=== PATIENT | female | born 1950 | race Caucasian/White ===

== ENCOUNTER 2019-09-06 08:12 | Outpatient (CLI) | payer OTHER, SELFPAY ==
--- NOTE | ~2019-09-06 | CT_ITS ---
EXAMINATION: CT chest w con DATE: 09/06/2019 09:14 INDICATION: Follow-up pulmonary nodules. Non-small cell lung cancer. TECHNIQUE: Computed tomography (CT) of the chest was performed with 75 cc Omnipaque 350 intravenous c ontrast. The dose-length product was 235.99 mGy-cm. Automated exposure control and iterative reconstr uction technique were employed. COMPARISON: CT dated 12/09/2017 FINDINGS: Stable mediastinal lymph node measuring approximately 9 mm, likely reactive. No axillary or hilar lymphadenopathy. No evidence for aortic aneurysm or dissection. Heart size normal. No signific ant pleural or pericardial effusion. Stable 4 mm left upper lobe nodule, image 33. Multiple additiona l stable 2-3 mm nodules are present throughout both lungs. Stable subsolid 6 mm nodule right lower lo be, image 74. No new pulmonary nodules or masses. No endobronchial lesions. The upper abdomen is unre markable. Stable calcified right thyroid nodules. IMPRESSION: 1. Stable innumerable bilateral pulmonary nodules, largest measuring 4 mm in the left upper lobe and some solid 6 mm nodule right lower lobe, most likely infectious/inflammatory. Follow-up low dose CT i n 12 months recommended. Reviewed, dictated and finalized at location A. IMPRESSION: 1. Stable innumerable bilateral pulmonary nodules, largest measuring 4 mm in th e left upper lobe and some solid 6 mm nodule right lower lobe, most likely infe ctious/inflammatory. Follow-up low dose CT in 12 months recommended.
[2019-09-06 08:55] LABS: Estimated Glomerular Filt Rate 49
== END 2019-09-06 08:13 | disposition home or self-care (01) ==
LOC: ANHIMG 08:20
DX: R91.1 Solitary pulmonary nodule (principal)
CPT/HCPCS: 36415; 71260; Q9967

== ENCOUNTER → 2022-07-28 11:13 | Outpatient (CLI) | payer MEDICARE, SELFPAY ==
--- NOTE | ~2022-07-28 | MM_ITS ---
EXAMINATION: MM screening [facility] BI w makenzie HISTORY: Screening mammogram TECHNIQUE: Craniocaudal and mediolateral oblique 3-D tomosynthesis images were obtained and synthetic 2-D images were generated. CAD analysis was submitted and interpreted. COMPARISON: 06/10/2017, 11/30/2015 BREAST PARENCHYMAL COMPOSITION: There are scattered areas of fibroglandular density. FINDINGS: No suspicious mass, calcification, or architectural distortion are identified in either rex ast to suggest malignancy. There has been no suspicious interval change. IMPRESSION: 1. No mammographic evidence of malignancy. 2. Recommend routine screening mammography in one year. BI-RADS Category 1: Negative Reviewed, dictated and finalized at location A.
--- NOTE | ~2022-07-28 | DEXA_ITS ---
Bone Density Report Name: CONCEPCIÓN LE Age: 72 Sex: Female Ethnicity: White Date of : 1950 Indication: postmenopausal; screening for osteoporosis; height loss; prior fracture; asthma or emphysema; Referring Provider: KHANHTABATHA Study: Bone densitometry was performed. Exam Date: July 28, 2022 Accession number: [id number] Bone Density: Region BMD T-score Z-score Classification AP Spine (L1-L4) 1.077 0.3 2.6 Normal Femoral Neck (Left) 0.819 -0.3 1.8 Normal Total Hip (Left) 1.011 0.6 2.3 Normal Femoral Neck (Right) 0.832 -0.2 1.9 Normal Total Hip (Right) 0.985 0.4 2.1 Normal Total Hip Mean 0.998 0.5 2.2 Normal World Health Organization criteria for BMD impression classify patients as: Normal (T-score at or above -1.0), Osteopenia (T-score between -1.0 and -2.5), or Osteoporosis (T-score at or below -2.5). 10-year Fracture Risk: FRAX not reported because: All T-scores for Spine Total, Hip Total, Femoral Neck at or above -1.0 Prior hip or vertebral fracture Previous Exams: Region Exam Age BMD T-score BMD Change BMD Change Date g/cm2 vs Baseline vs Previous AP Spine(L1-L4) 07/28/2022 72 1.077 0.3 -0.036* -0.036* 04/08/2013 63 1.113 0.6 Total Hip(Left) 07/28/2022 72 1.011 0.6 -0.038* -0.038* 04/08/2013 63 1.048 0.9 Total Hip(Right) 07/28/2022 72 0.985 0.4 -0.043* -0.043* 04/08/2013 63 1.029 0.7 *Denotes significance at 95% confidence level, LSC for AP Spine = 0.022 g/cm2, LSC for Total Hip = 0.027 g/cm2 Clinical Information Provided by Patient: Have had a previous hip or vertebral fracture Has had a low trauma fracture Has used the following medications: Vitamin D Has the following medical conditions: Asthma or Emphysema, CLL - 01/2022 Patient maximum height was 69.7 Menopause Age: 45 No regular weight bearing exercise Does not regularly consume dairy products Drinks caffeinated beverages Onset of menses at age 10 Number of children 5 Impression: The patient has normal bone mass. The patient has risk factors, including: previous fracture. The BMD for the AP Spine(L1-L4) decreased, changing by -0.036 since the last DXA exam. The BMD for the Total Hip(Left) decreased, changing by -0.038 since the last DXA exam. The BMD for the Total Hip(Right) decreased, changing by -0.043 since the last DXA exam. Discussion: INCREASED RISK OF FRACTURE DUE TO HISTORY OF
== END ==
PROVIDERS: PCP Internal Medicine; Visit Provider Internal Medicine
DX: Z12.31 Encounter for screening mammogram for malignant neoplasm of breast (principal); Z78.0 Asymptomatic menopausal state; Z13.820 Encounter for screening for osteoporosis; M16.11 Unilateral primary osteoarthritis, right hip
CPT/HCPCS: 77063; 77067; 77080

== ENCOUNTER 2023-07-03 19:31 | Observation (INO) | payer MEDICARE, SELFPAY ==
[2023-07-03] VITALS (8 sets, daily range): BP systolic 127–161; BP diastolic 76–102; PULSE 98–110; RESP 15–24; TEMP 36.4; O2SAT 92–97
--- NOTE | ~2023-07-03 | XR_ITS ---
EXAMINATION: XR chest 1V portable Exam Date/Time: 07/03/2023 20:48 CDT HISTORY: shortness of breath Comparison: 09/03/2017, images only; CT chest 09/06/2019, images only. RESULT: Lines, tubes, and devices: Cardiac valve replacement. Lungs and pleura: Mild diffuse reticulonodular opacities. Cardiomediastinal silhouette: Stable. Other: No acute osseous or upper abdominal finding. IMPRESSION: Diffuse pulmonary opacities may represent respiratory bronchiolitis or mild interstitial edema. Reviewed, dictated and finalized at location K. IMPRESSION: Diffuse pulmonary opacities may represent respiratory bronchiolitis or mild int erstitial edema.
--- NOTE | 2023-07-03 19:32 | ECG_ITS ---
SEE SCANNED COPY FOR CONFIRMED REPORT MTDD
[2023-07-03 20:11] LABS: Basophils Percent Auto 0.3 % (0.2-1.2); Eosinophils Absolute Auto 0.1 K/mm3 (0-0.3); Eosinophils Percent Auto 0.9 % (0-4.4); Hematocrit 45.1 % (37.0-47.0); Hemoglobin 14.9 g/dL (12.0-15.0); Immature Granulocyte Absolute 0.04 K/mm3 (0.00-0.031); Immature Granulocyte Percent A 0.4 % (0-0.5); Lymphocytes Absolute Auto 0.89 K/mm3 (0.9-3.2); Lymphocytes Percent Auto 7.9 % (18.3-44.2); Mean Corpuscular Hemoglobin 30.8 pg (26-34); Mean Corpuscular Volume 93.2 fl (80-100); Mean Platelet Volume 9.8 fl (7.4-10.4); Monocytes Absolute Auto 1.1 K/mm3 (0.1-0.6); Monocytes Percent Auto 9.8 % (2.6-8.5); Neutrophils Percent Auto 80.7 % (45.5-73.1); Platelet Count Result 205 k/mm3 (150-375); Red Blood Count 4.84 M/mm3 (4.2-5.4); Red Cell Distribution Width 12.4 % (11.5-14.5); White Blood Count 11.2 K/mm3 (4.5-10.0)
[2023-07-03 20:20] LABS: Alanine Aminotransferase 29 U/L (6-35); Albumin Level 4.3 g/dL (3.5-5.1); Alkaline Phosphatase 79 U/L (38-126); Anion Gap 7 mmol/L (4-12); Aspartate Amino Transferase 35 U/L (14-36); Bilirubin,Total 0.7 mg/dL (0.2-1.3); Blood Urea Nitrogen 20 mg/dL (7-17); Calcium 9.7 mg/dL (8.4-10.2); Carbon Dioxide 32 mmol/L (22-30); Chloride 97 mmol/L (98-107); Estimated Glomerular Filt Rate 48; Glucose 159 mg/dL (65-110); Potassium 3.9 mmol/L (3.4-5.0); Sodium 136 mmol/L (137-145)
[2023-07-03] MEDS: IPRATROPIUM 0.5 MG/ALBUTEROL SULFATE 2.5 MG AMPUL.NEB 3 ML INHALATION ×3 (20:31→20:32)
[2023-07-03 20:39] LABS: NT Pro B Type Natriuretic Pept 777 pg/mL (19.9-100)
--- NOTE | 2023-07-03 20:50 | ED.GENADULT ---
HPI - General Adult General Chief complaint: Shortness of Breath/Dyspnea Stated complaint: Short of breath Time Seen by Provider: 07/03/23 20:07 History of Present Illness HPI narrative: Patient is a 73-year-old female who presents to the emergency department this evening complaining of shortness of breath. Patient states that she was diagnosed with an upper respiratory infection last week and told that she just needs to wait it out and was prescribed Tessalon Perles for her cough. Patient states that her shortness of breath throughout this week has worsened. Patient does have audible wheezing and states that she was diagnosed with mild COPD and admits to a history of asthma and CHF. Patient is currently on a water pill but states that she has been skipping every other day due to fear of getting dehydrated while she clears this virus. She is currently denying any chest pain, abdominal pain, nausea or vomiting. Patient does have a history of atrial fibrillation and is on Xarelto. She denies any fevers at home. She there are no other modifying, alleviating, or precipitating factors at this time. Related Data Allergies Allergy/AdvReac Type Severity Reaction Status Date / Time levofloxacin Allergy Unknown FEVER AND Verified 07/03/23 20:57 SORE MUSCLES doxycycline AdvReac Joint Pain Verified 07/03/23 20:57 rifampin AdvReac Diarrhea Verified 07/03/23 20:57 Yufyxja-FKW-OsW Reductase AdvReac Joint Pain Verified 07/03/23 20:57 Inhibitor Review of Systems Review of Systems: All systems are reviewed and are negative unless stated otherwise in the HPI. PMFSH Comments Past medical history significant for CHF, asthma/COPD atrial fibrillation on Xarelto. Exam Narrative: General: Alert, awake, afebrile, aicw-sw-cbezxcdn respiratory distress. HEENT: PERRL, no rhinorrhea, no post nasal drip, oropharynx clear. Neck: Trachea midline, no JVD, no lymphadenopathy. Cardiovascular: Tachycardic with an irregular rhythm, no murmurs, rubs or gallops, no peripheral edema. Respiratory: Diffuse bilateral wheezing, conversational dyspnea, tachypnea, no rhonchi, no rubs, in cpcy-rh-lyohmehi respiratory distress. Abdomen: Soft, nontender, nondistended, no rebound, no guarding, no peritoneal signs. Musculoskeletal: No joint swelling or deformity, normal muscle tone. Skin: No rashes or petechia, no signs of infection. Psychiatric: Alert and oriented, normal behavior and judgment for situation. Neurological: Alert and oriented to person, place, and time. Follows all commands. No focal deficits, speech is clear and fluent. Course Vital Signs Vital signs: Vital Signs Pulse Rate 98 07/03/23 20:36 Respiratory Rate 22 H 07/03/23 20:36 Pulse Rate 98 07/03/23 20:36 Respiratory Rate 22 H 07/03/23 20:36 Medical Decision Making MDM Narrative Medical decision making narrative: The patient was evaluated by myself in the emergency department. History is obtained from patient who is an independent historian and physical exam was performed. External medical records were reviewed at this time. IV was established and pertinent tests were ordered. Patient does meet SIRS criteria based on heart rate and respiratory rate at this time and she was started on IV Rocephin and azithromycin to cover her for pneumonia/COPD/asthma exacerbation. Patient was administered an hour long DuoNeb breathing treatment and 125 mg of IV Solu-Medrol. EKG was obtained which revealed atrial fibrillation at a rate of 108. No ST changes, T wave inversions or evidence of acute ischemia within the limitations of the baseline artifact. EKG was independently interpreted by me and is currently pending official cardiology read. Laboratory results obtained revealing no acute process. Imaging studies obtained included CXR which was independently interpreted by me revealing mild interstitial edema no obvious consolidation or evidence of pneumonia, chest x
[2023-07-03] MEDS: methylPREDNISolone SOD SUCC 125 MG VIAL IV PUSH (21:00)
--- NOTE | 2023-07-03 21:14 | PM.IMHP ---
H&P: HPI History of Present Illness Date/Time: 07/03/23 21:14 Chief Complaint: SOB Narrative: THIS IS A 72-YEAR-OLD FEMALE WITH PAST MEDICAL HISTORY SIGNIFICANT FOR HYPERTENSION, CONGESTIVE HEART FAILURE, ATRIAL FIBRILLATION RATE CONTROLLED ANTICOAGULATED, CHRONIC KIDNEY DISEASE, OBESITY. PATIENT PRESENTS TO THE EMERGENCY ROOM DUE TO WHEEZING, SHORTNESS OF BREATH FOR A WEEK OR SO WAS SEEN AT [facility]RGENT [facility]ARE CL[facility]IC WHERE SHE WAS TOLD SHE HAD A VIRAL ILLNESS AND WAS SENT HOME WITH SYMPTOMATIC CARE. PATIENT'S SYMPTOMS GOT WORSE SHE HAS PERSISTENT COUGH PRODUCTIVE OF YELLOW SPUTUM, FEVERS, CHILLS HAS HAD GENERALIZED MUSCLE ACHES AND PAINS GENERALIZED WEAKNESS, POOR APPETITE, POOR PER ORALLY INTAKE. PRELIMINARY WORKUP WAS SIGNIFICANT FOR CHEST X-RAY WITH LUNG OPACITIES. PATIENT TESTED NEGATIVE FOR INFLUENZA TYPE A INFLUENZA TYPE B COVID AND RSV. IN EMERGENCY ROOM PATIENT REQUIRE SEVERAL NEB TREATMENTS. PATIENT HAS BEEN PLACED IN OBSERVATION FOR FURTHER EVALUATION MANAGEMENT AND TREATMENT. EXAMINATION:? XR chest 1V portable Exam Date/Time:? 07/03/2023 20:48 CDT HISTORY: shortness of breath ? Comparison:? 09/03/2017, images only; CT chest 09/06/2019, images only. RESULT: Lines, tubes, and devices:? Cardiac valve replacement. Lungs and pleura:? Mild diffuse reticulonodular opacities. Cardiomediastinal silhouette:? Stable. Other:? No acute osseous or upper abdominal finding. ? IMPRESSION: Diffuse pulmonary opacities may represent respiratory bronchiolitis or mild interstitial edema. [facility] Family History Family History (Updated 07/03/23 @ 23:13 by Melanie Khan RN) Father Acute myocardial infarction Congestive heart failure Hypertension Other Asthma Congestive heart failure Mother Cerebrovascular accident Chronic obstructive pulmonary disease Congestive heart failure Hypertension Social History Social History Smoking status: Former smoker Alcohol intake: never Substance use: never Do You Feel Safe in your Home?: Yes Lack of Transportation: No Lack of Food: Never True Current Housing: I Have Housing Concerned About Future Housing: No Difficulty Paying Gas/Electric Bills: No Difficulty Paying for Meds: No Currently Unemployed: No Education: Bachelor's Degree Difficulty w/ Childcare or Family Care: No Spiritual care concerns: No Meds Home Medications and Allergies Home Medications Medication Instructions Recorded Confirmed Type acetaminophen 325 mg tablet 650 mg PO Q4H PRN Pain 07/03/23 07/03/23 History ascorbic acid (vitamin C) 1,000 mg 1 g PO DAILY 07/03/23 07/03/23 History tablet aspirin 81 mg tablet 81 mg PO HS 07/03/23 07/03/23 History benzonatate 100 mg capsule 100 mg PO TID PRN Cough 07/03/23 07/03/23 History cholecalciferol (vitamin D3) 4,000 units PO DAILY 07/03/23 07/03/23 History cyanocobalamin (vitamin B-12) 1,000 mcg PO EVERY OTHER DAY 07/03/23 07/03/23 History ferrous sulfate 325 mg (65 mg 325 mg PO EVERY OTHER DAY 07/03/23 07/03/23 History iron) tablet magnesium glycinate 400 mg PO DAILY 07/03/23 07/03/23 History meclizine 25 mg tablet 25 mg PO TID PRN Dizziness 07/03/23 07/03/23 History metoprolol succinate 25 mg 25 mg PO DAILY 07/03/23 07/03/23 History tablet,extended release 24 hr omega-3 fatty acids-fish oil 2 cap PO DAILY 07/03/23 07/03/23 History potassium chloride 10 mEq 10 meq PO DAILY 07/03/23 07/03/23 History tablet,extended release rivaroxaban 20 mg tablet (Xarelto) 20 mg PO DAILY 07/03/23 07/03/23 History spironolactone 25 mg tablet 25 mg PO DAILY 07/03/23 07/03/23 History torsemide 20 mg tablet 20 mg PO DAILY 07/03/23 07/03/23 History Allergies Allergy/AdvReac Type Severity Reaction Status Date / Time levofloxacin Allergy Unknown FEVER AND Verified 07/03/23 20:57 SORE MUSCLES doxycycline AdvReac Joint Pain Verified 07/03/23 20:57 rifampin AdvReac Diar
[2023-07-03 22:07] LABS: Influenza A QL RT-PCR Negative (Negative); Influenza B QL RT-PCR Negative (Negative); RSV RNA, RT-PCR Negative (Negative); SARS-CoV-2 RNA PCR Negative (Negative)
[2023-07-03] MEDS: AZITHROMYCIN 500 MG/NS 250 ML 500 MG/250 ML BAG 250 MG IVPB (22:41)
--- NOTE | 2023-07-03 23:08 | ADMGEN ---
This patient, Kristen Jones, was admitted to 2 Medical Room 242-01. Patient/family oriented to hospital policies and general routines including ID bracelet, bed and alarms, visiting hours, pain management, procedures, bathroom and other care routines, personal items, smoking policy, room service/diet, and visiting hours. Information on how to activate the Rapid Response Team has been discussed. Patient/Family are encouraged to report perceived risks to care and to ask questions if they do not understand what they are told or what they should do.
[2023-07-04] VITALS (21 sets, daily range): BP systolic 113–124; BP diastolic 51–69; PULSE 61–105; RESP 16–24; TEMP 36.2–36.5; O2SAT 93–97
[2023-07-04] MEDS: IPRATROPIUM 0.5 MG/ALBUTEROL SULFATE 2.5 MG AMPUL.NEB 3 ML INHALATION ×4 (02:30→19:58)
[2023-07-04] MEDS: BENZONATATE 100 MG CAPSULE PO ×3 (04:38→21:53)
[2023-07-04] MEDS: methylPREDNISolone SOD SUCC 125 MG VIAL 60 MG IV PUSH (06:32)
[2023-07-04] MEDS: ASCORBIC ACID 500 MG TABLET 1000 MG PO (09:11)
[2023-07-04] MEDS: FERROUS SULFATE 325 MG TABLET DR BY MOUTH (09:11)
[2023-07-04] MEDS: CHOLECALCIFEROL 1,000 UNITS TABLET 4000 UNITS PO (09:11)
[2023-07-04] MEDS: METOPROLOL SUCCINATE EXT REL 25 MG TABCR PO (09:11)
[2023-07-04] MEDS: MAGNESIUM OXIDE 400 MG TABLET PO (09:11)
[2023-07-04] MEDS: OMEGA 3 POLYUNSAT FATTY ACIDS 1 GM CAP 2 GM PO (09:11)
[2023-07-04] MEDS: SPIRONOLACTONE 25 MG TABLET PO (09:11)
--- NOTE | 2023-07-04 12:12 | PM.IMPN ---
Progress Note: A&P Assessment and Plan (1) CAP (community acquired pneumonia): Code(s): J18.9 - Pneumonia, unspecified organism Status: Acute Assessment and Plan: Presented with progressively productive cough and worsening dyspnea and leukocytosis with ABNL CXR Flu AB, COVID, RSV all negative Continue Zithromax and Rocephin (2) Asthma with COPD with exacerbation: Code(s): J44.1 - Chronic obstructive pulmonary disease with (acute) exacerbation; J45.901 - Unspecified asthma with (acute) exacerbation Status: Acute Assessment and Plan: Continue steroids and bronchodilators (3) Atrial fibrillation: Code(s): I48.91 - Unspecified atrial fibrillation Status: Acute Assessment and Plan: Continue metoprolol and Xarelto (4) Congestive heart failure: Code(s): I50.9 - Heart failure, unspecified Status: Acute Assessment and Plan: CHF may be contributing to ABNL CXR (BNP 777 at admission and she initially had orhtopnea) Continue metoprolol and torsemide (5) S/P AVR (aortic valve replacement): Code(s): Z95.2 - Presence of prosthetic heart valve Status: Acute Assessment and Plan: Clinically stable Subjective Date/time seen: 07/04/23 12:12 Interval history: Admitted 07/02 with productive cough and sob. Hx CAD, AVR (bio), AF, CHF, COPD/asthma. No fever. Chest sore but no exertional pain. BILLY with speaking. Cough severe. Loose stool. Mild fecal incontinence with coughing. No dysuria. No noted bleeding. Has annual echo. No hx CHF. Review of Systems Review of Systems: All systems reviewed & are unremarkable except as noted in HPI and below Exam Narrative: HEENT: PERRL, sclerae nonicteric, pharyngeal mucosa pink and intact NECK: No JVD CHEST: Coarse BS, bilaterl LL fine crackles. Normal effort. HEART: NL S1/S2, regular, no murmur ABDOMEN: BS+, soft, nontender, no mass, no bruits EXTREMITIES: No cyanosis, edema, or clubbing NEUROLOGIC: CN intact and symmetric to inspection. MUSCULOSKELETAL: Tone and strength symmetric. PSYCH: Alert. Oriented to person, place, and time. Objective Data Vital Signs Vital Signs: Vital Signs - 24 hr 07/03/23 20:36 07/03/23 20:00 07/03/23 21:22 Temperature 97.6 F Pulse Rate 98 105 H Respiratory Rate 22 H 20 Blood Pressure 150/102 H Pulse Oximetry 96 96 Oxygen Delivery Room Air Room Air 07/03/23 19:45 07/03/23 21:40 07/03/23 21:47 Temperature Pulse Rate 100 102 H 110 H Respiratory Rate 21 H 15 Blood Pressure 161/99 H Pulse Oximetry 97 Oxygen Delivery 07/03/23 22:39 07/03/23 23:22 07/04/23 00:00 Temperature Pulse Rate 100 87 Respiratory Rate 24 H Blood Pressure 127/90 Pulse Oximetry 95 Oxygen Delivery Room Air 07/03/23 23:49 07/04/23 00:44 07/04/23 02:30 Temperature 97.6 F Pulse Rate 101 H 93 79 Respiratory Rate 22 H 20 Blood Pressure 133/76 Pulse Oximetry 92 97 Oxygen Delivery CPAP 07/04/23 02:30 07/04/23 04:00 07/04/23 06:00 Temperature 97.7 F Pulse Rate 79 82 89 Respiratory Rate 20 22 H Blood Pressure 115/53 L Pulse Oximetry 96 96 Oxygen Delivery CPAP 07/04/23 08:28 07/04/23 08:29 07/04/23 08:36 Temperature Pulse Rate 92 105 H Respiratory Rate 20 24 H Blood Pressure Pulse Oximetry 95 Oxygen Delivery Room Air 07/04/23 09:07 07/04/23 09:11 07/04/23 08:00 Temperature 97.4 F L Pulse Rate 94 98 103 H Respiratory Rate 18 Blood Pressure 124/69 Pulse Oximetry 95 Oxygen Delivery 07/04/23 09:20 Temperature Pulse Rate Respiratory Rate Blood Pressure Pulse Oximetry Oxygen Delivery Room Air Intake/Output Intake/Output: Intake & Output 07/01/23 07/02/23 07/03/23 07/04/23 23:59 23:59 23:59 23:59 Intake Total 300 790 Balance 300 790 Meds/Results Medications: Active Medications Generic Name Dose Route Start Last Admin Trade Name Freq PRN Reason
[2023-07-04] MEDS: TORSEMIDE 20 MG TABLET PO (13:49)
[2023-07-04] MEDS: AZITHROMYCIN 500 MG/NS 250 ML 500 MG/250 ML BAG 250 MG IVPB (14:29)
[2023-07-04 14:33] LABS: Anion Gap 11 mmol/L (4-12); Blood Urea Nitrogen 21 mg/dL (7-17); Calcium 10.1 mg/dL (8.4-10.2); Carbon Dioxide 27 mmol/L (22-30); Chloride 98 mmol/L (98-107); Estimated CRCL calculation 71 ml/min; Estimated Glomerular Filt Rate > 60; Glucose 178 mg/dL (65-110); Sodium 136 mmol/L (137-145)
[2023-07-04] MEDS: ACETAMINOPHEN 325 MG TABLET 650 MG PO ×2 (14:34→19:02)
[2023-07-04] MEDS: RIVAROXABAN 20 MG TABLET PO (17:48)
[2023-07-04] MEDS: DOCUSATE SODIUM 100 MG CAPSULE PO (19:00)
[2023-07-04] MEDS: ASPIRIN 81 MG ENTERIC TABLET PO (20:52)
[2023-07-05] VITALS (19 sets, daily range): BP systolic 101–148; BP diastolic 66–78; PULSE 77–110; RESP 16–20; TEMP 36.7–38.8; O2SAT 91–96
[2023-07-05] MEDS: IPRATROPIUM 0.5 MG/ALBUTEROL SULFATE 2.5 MG AMPUL.NEB 3 ML INHALATION ×4 (03:26→19:58)
[2023-07-05 05:09] LABS: Hematocrit 39.8 % (37.0-47.0); Hemoglobin 13.3 g/dL (12.0-15.0); Mean Corpuscular HGB Conc 33.4 g/dl (32-36); Mean Corpuscular Hemoglobin 31.3 pg (26-34); Mean Corpuscular Volume 93.6 fl (80-100); Mean Platelet Volume 10.2 fl (7.4-10.4); Platelet Count Result 230 k/mm3 (150-375); Red Blood Count 4.25 M/mm3 (4.2-5.4); Red Cell Distribution Width 12.3 % (11.5-14.5); White Blood Count 14.7 K/mm3 (4.5-10.0)
[2023-07-05 05:18] LABS: Anion Gap 6 mmol/L (4-12); Blood Urea Nitrogen 25 mg/dL (7-17); Calcium 9.7 mg/dL (8.4-10.2); Carbon Dioxide 30 mmol/L (22-30); Chloride 101 mmol/L (98-107); Cholesterol 148 mg/dL (0-200); Estimated CRCL calculation 71 ml/min; Estimated Glomerular Filt Rate > 60; Glucose 161 mg/dL (65-110); HDL Direct 28 mg/dL; Potassium 4.1 mmol/L (3.4-5.0); Sodium 137 mmol/L (137-145); Triglycerides 99 mg/dL (<150)
[2023-07-05 05:23] LABS: Hemoglobin A1C 6.1 % (<5.7)
[2023-07-05 05:29] LABS: LDL Cholesterol Direct 112 mg/dL
[2023-07-05] MEDS: TORSEMIDE 20 MG TABLET PO (09:17)
[2023-07-05] MEDS: predniSONE 20 MG TABLET 40 MG PO (09:17)
[2023-07-05] MEDS: SPIRONOLACTONE 25 MG TABLET PO (09:18)
[2023-07-05] MEDS: CYANOCOBALAMIN 1,000 MCG TABLET 1000 MCG PO (09:18)
[2023-07-05] MEDS: DOCUSATE SODIUM 100 MG CAPSULE PO (09:18)
[2023-07-05] MEDS: METOPROLOL SUCCINATE EXT REL 25 MG TABCR PO (09:18)
--- NOTE | 2023-07-05 10:30 | PC.NURSE ---
Pt refusing to take omega 3, vit c, vit d, and magnesium at this time. Will try again later to give medications
[2023-07-05] MEDS: OMEGA 3 POLYUNSAT FATTY ACIDS 1 GM CAP 2 GM PO (13:39)
[2023-07-05] MEDS: CHOLECALCIFEROL 1,000 UNITS TABLET 4000 UNITS PO (13:40)
[2023-07-05] MEDS: ASCORBIC ACID 500 MG TABLET 1000 MG PO (13:40)
[2023-07-05] MEDS: MAGNESIUM OXIDE 400 MG TABLET PO (13:40)
[2023-07-05] MEDS: AZITHROMYCIN 500 MG/NS 250 ML 500 MG/250 ML BAG 250 MG IVPB (14:47)
--- NOTE | 2023-07-05 16:37 | PM.IMPN ---
Progress Note: A&P Assessment and Plan (1) CAP (community acquired pneumonia): Code(s): J18.9 - Pneumonia, unspecified organism Status: Acute Assessment and Plan: Presented with progressively productive cough and worsening dyspnea and leukocytosis with ABNL CXR Flu AB, COVID, RSV all negative 07/04 stop Zithromax, continued ceftriaxone (2) Asthma with COPD with exacerbation: Code(s): J44.1 - Chronic obstructive pulmonary disease with (acute) exacerbation; J45.901 - Unspecified asthma with (acute) exacerbation Status: Acute Assessment and Plan: Continue steroids and bronchodilators (3) Atrial fibrillation: Code(s): I48.91 - Unspecified atrial fibrillation Status: Acute Assessment and Plan: Continue metoprolol and Xarelto (4) Congestive heart failure: Code(s): I50.9 - Heart failure, unspecified Status: Acute Assessment and Plan: CHF may be contributing to ABNL CXR (BNP 777 at admission and she initially had orhtopnea) Continue metoprolol and torsemide (5) S/P AVR (aortic valve replacement): Code(s): Z95.2 - Presence of prosthetic heart valve Status: Acute Assessment and Plan: Clinically stable (6) Impaired glucose tolerance: Code(s): R73.02 - Impaired glucose tolerance (oral) Status: Acute Assessment and Plan: 07/04 A1c 6.1 Subjective Date/time seen: 07/05/23 16:37 Interval history: Dyspnea and cough improving. BILLY with walking to bathroom or getting out of bed. Green nasal discharge today. No chest pain. Mild nausea with Zithromax. Review of Systems Review of Systems: All systems reviewed & are unremarkable except as noted in HPI and below Exam Narrative: HEENT: PERRL, sclerae nonicteric, pharyngeal mucosa pink and intact NECK: No JVD CHEST: Coarse BS, bilaterl LL fine crackles. Normal effort. HEART: NL S1/S2, regular, no murmur ABDOMEN: BS+, soft, nontender, no mass, no bruits EXTREMITIES: No cyanosis, edema, or clubbing NEUROLOGIC: CN intact and symmetric to inspection. MUSCULOSKELETAL: Tone and strength symmetric. PSYCH: Alert. Oriented to person, place, and time. Objective Data Vital Signs Vital Signs: Vital Signs - 24 hr 07/04/23 19:59 07/04/23 19:59 07/04/23 20:05 Temperature Pulse Rate 73 94 Respiratory Rate 18 18 Blood Pressure Pulse Oximetry 93 Oxygen Delivery Room Air 07/04/23 21:29 07/04/23 20:00 07/04/23 22:00 Temperature 97.4 F L Pulse Rate 61 83 83 Respiratory Rate 23 H 18 Blood Pressure 113/51 L Pulse Oximetry 95 93 Oxygen Delivery CPAP 07/05/23 00:00 07/05/23 03:26 07/05/23 03:27 Temperature Pulse Rate 90 80 80 Respiratory Rate 18 18 Blood Pressure Pulse Oximetry Oxygen Delivery CPAP 07/05/23 03:28 07/05/23 04:00 07/05/23 06:00 Temperature 98.0 F Pulse Rate 79 85 92 Respiratory Rate 18 18 Blood Pressure 101/72 Pulse Oximetry 93 Oxygen Delivery 07/05/23 07:50 07/05/23 07:50 07/05/23 08:00 Temperature Pulse Rate 77 77 80 Respiratory Rate 18 18 18 Blood Pressure Pulse Oximetry 94 Oxygen Delivery Room Air 07/05/23 09:18 07/05/23 13:06 07/05/23 13:06 Temperature Pulse Rate 110 H 105 H Respiratory Rate 20 Blood Pressure Pulse Oximetry 96 Oxygen Delivery Room Air 07/05/23 13:21 07/05/23 13:35 07/05/23 13:37 Temperature 98.7 F 98.1 F Pulse Rate 83 104 H 98 Respiratory Rate 20 20 16 Blood Pressure 148/78 H 105/67 Pulse Oximetry 95 94 Oxygen Delivery 07/05/23 09:30 07/05/23 08:00 Temperature Pulse Rate 94 Respiratory Rate Blood Pressure Pulse Oximetry Oxygen Delivery Room Air Intake/Output Intake/Output: Intake & Output 07/02/23 07/03/23 07/04/23 07/05/23 23:59 23:59 23:59 23:59 Intake Total 300 1770 830 Output Total 1200 Balance 300 1770 -370 Meds/Results Medications: Active Medications Generic Na
[2023-07-05] MEDS: RIVAROXABAN 20 MG TABLET PO (17:57)
[2023-07-05] MEDS: CALCIUM CARBONATE (TUMS) 500 MG (200 MG ELEMENTAL) PO (18:10)
[2023-07-05] MEDS: ACETAMINOPHEN 325 MG TABLET 650 MG PO (18:48)
[2023-07-05] MEDS: ASPIRIN 81 MG ENTERIC TABLET PO (20:37)
[2023-07-06] VITALS (13 sets, daily range): BP systolic 121–141; BP diastolic 60–85; PULSE 74–108; RESP 14–18; TEMP 36.4–36.7; O2SAT 91–100
[2023-07-06 05:40] LABS: Hematocrit 39.6 % (37.0-47.0); Hemoglobin 12.8 g/dL (12.0-15.0); Mean Corpuscular HGB Conc 32.3 g/dl (32-36); Mean Corpuscular Hemoglobin 30.8 pg (26-34); Mean Corpuscular Volume 95.2 fl (80-100); Platelet Count Result 261 k/mm3 (150-375); Red Blood Count 4.16 M/mm3 (4.2-5.4); Red Cell Distribution Width 12.3 % (11.5-14.5)
[2023-07-06 05:59] LABS: Anion Gap 2 mmol/L (4-12); Blood Urea Nitrogen 24 mg/dL (7-17); Calcium 9.6 mg/dL (8.4-10.2); Carbon Dioxide 33 mmol/L (22-30); Chloride 102 mmol/L (98-107); Estimated CRCL calculation 64 ml/min; Estimated Glomerular Filt Rate > 60; Glucose 117 mg/dL (65-110); Potassium 3.5 mmol/L (3.4-5.0); Sodium 137 mmol/L (137-145)
[2023-07-06] MEDS: IPRATROPIUM 0.5 MG/ALBUTEROL SULFATE 2.5 MG AMPUL.NEB 3 ML INHALATION ×3 (07:48→19:05)
[2023-07-06] MEDS: CHOLECALCIFEROL 1,000 UNITS TABLET 4000 UNITS PO (10:03)
[2023-07-06] MEDS: predniSONE 20 MG TABLET 40 MG PO (10:03)
[2023-07-06] MEDS: FERROUS SULFATE 325 MG TABLET DR BY MOUTH (10:04)
[2023-07-06] MEDS: DOCUSATE SODIUM 100 MG CAPSULE PO (10:04)
[2023-07-06] MEDS: OMEGA 3 POLYUNSAT FATTY ACIDS 1 GM CAP 2 GM PO (10:05)
[2023-07-06] MEDS: METOPROLOL SUCCINATE EXT REL 25 MG TABCR PO (10:05)
[2023-07-06] MEDS: MAGNESIUM OXIDE 400 MG TABLET PO (10:05)
[2023-07-06] MEDS: TORSEMIDE 20 MG TABLET PO (10:05)
[2023-07-06] MEDS: ASCORBIC ACID 500 MG TABLET 1000 MG PO (10:05)
[2023-07-06] MEDS: SPIRONOLACTONE 25 MG TABLET PO (10:05)
[2023-07-06] MEDS: CALCIUM CARBONATE (TUMS) 500 MG (200 MG ELEMENTAL) PO (13:52)
[2023-07-06] MEDS: RIVAROXABAN 20 MG TABLET PO (17:55)
[2023-07-06] MEDS: ACETAMINOPHEN 325 MG TABLET 650 MG PO (21:01)
[2023-07-06] MEDS: ASPIRIN 81 MG ENTERIC TABLET PO (21:02)
--- NOTE | 2023-07-06 21:31 | PM.IMPN ---
Progress Note: A&P Assessment and Plan (1) Impaired glucose tolerance: Code(s): R73.02 - Impaired glucose tolerance (oral) Status: Acute (2) Congestive heart failure: Code(s): I50.9 - Heart failure, unspecified Status: Acute (3) S/P AVR (aortic valve replacement): Code(s): Z95.2 - Presence of prosthetic heart valve Status: Acute (4) Asthma with COPD with exacerbation: Code(s): J44.1 - Chronic obstructive pulmonary disease with (acute) exacerbation; J45.901 - Unspecified asthma with (acute) exacerbation Status: Acute (5) CAP (community acquired pneumonia): Code(s): J18.9 - Pneumonia, unspecified organism Status: Acute Plan #community acquired PNA -improving, WBC down, likely home tomorrow, plan to complete 5 day ABx course total -quad screen negative #Chronic conditions -asthma/copd: continue bronchodilators and steroids, prednisone 40mg daily -CHF: torsemide, spironolactone, BB, No acei or arb? -HTN: metoprolol -may continue home supplements: ferrous sulfate, mag ox, B12, vit d -HLD: on aspirin. does not tolerate statin, on fish oil -h/o AVR Diet: Regular DVTppx: Xarelto Code status: Full code Disposition: likely home tomorrow Subjective Date/time seen: 07/06/23 21:31 Interval history: Patient seen and examined. SHe is doing well with no new complaints. WBC down to 12k. Will continue ABx and likely discharge tomorrow. She endorses a cough but denies fever, chills, n/v/d. Review of Systems Review of Systems: 10 point ROS complete, negative other than what is specified in HPI. Exam Narrative: - GENERAL: Pleasant woman in no acute distress. - EYES: EOMI. Anicteric. - HENT: Moist mucous membranes. - LUNGS: Clear to auscultation bilaterally, no wheezing, rhonchi, or rales. - CARDIOVASCULAR: Regular rate and rhythm. No murmur. No JVD. - ABDOMEN: Soft, non-tender and non-distended. No palpable masses. - EXTREMITIES: No edema. Peripheral pulses 2+. Non-tender. - NEUROLOGIC: No focal neurological deficits. CN II-XII grossly intact. - PSYCHIATRIC: Awake, Alert and oriented x 3. Appropriate mood and affect. - SKIN: No rashes or lesions. Warm. - LYMPH: No cervical lymphadenopathy. Objective Data Vital Signs Vital Signs: Vital Signs - 24 hr 07/05/23 21:40 07/06/23 02:12 07/06/23 02:12 Temperature Pulse Rate 89 82 82 Respiratory Rate 20 16 16 Blood Pressure Pulse Oximetry 93 92 Oxygen Delivery CPAP CPAP Fraction of Inspired Oxygen 07/06/23 02:20 07/06/23 05:15 07/06/23 07:48 Temperature 36.4 C Pulse Rate 83 74 Respiratory Rate 15 18 Blood Pressure 134/67 Pulse Oximetry 92 94 Oxygen Delivery Room Air Fraction of Inspired Oxygen 21 07/06/23 07:48 07/06/23 10:04 07/06/23 10:05 Temperature Pulse Rate 78 107 H 107 H Respiratory Rate 18 14 Blood Pressure 134/60 Pulse Oximetry 100 Oxygen Delivery Fraction of Inspired Oxygen 07/06/23 10:05 07/06/23 13:51 07/06/23 13:57 Temperature Pulse Rate 92 89 Respiratory Rate 18 18 Blood Pressure Pulse Oximetry Oxygen Delivery Room Air Fraction of Inspired Oxygen 07/06/23 14:15 07/06/23 19:32 07/06/23 19:06 Temperature 36.6 C 36.7 C Pulse Rate 108 H 86 88 Respiratory Rate 17 18 18 Blood Pressure 121/85 141/62 H Pulse Oximetry 91 92 Oxygen Delivery Fraction of Inspired Oxygen 07/06/23 19:21 Temperature Pulse Rate 85 Respiratory Rate 18 Blood Pressure Pulse Oximetry Oxygen Delivery Fraction of Inspired Oxygen Intake/Output Intake/Output: Intake & Output 07/03/23 07/04/23 07/05/23 07/06/23 23:59 23:59 23:59 23:59 Intake Total 300 1770 1320 650 Output Total 1450 400 Balance 300 1770 -130 250 Meds/Results Medications: Active Medications Generic Name Dose Route Start Last Admin Trade Name Freq PRN Reason Stop Dose Admin Acetaminophen 650 mg 07/04/23 01:17 07/06/23 21:01 Mario
[2023-07-07] VITALS (9 sets, daily range): BP systolic 123–125; BP diastolic 61–87; PULSE 75–95; RESP 14–18; TEMP 36.6–36.7; O2SAT 92–96
[2023-07-07] MEDS: IPRATROPIUM 0.5 MG/ALBUTEROL SULFATE 2.5 MG AMPUL.NEB 3 ML INHALATION ×2 (01:02→07:11)
[2023-07-07 05:22] LABS: Hematocrit 40.2 % (37.0-47.0); Hemoglobin 13.1 g/dL (12.0-15.0); Mean Corpuscular HGB Conc 32.6 g/dl (32-36); Mean Corpuscular Hemoglobin 31.2 pg (26-34); Mean Corpuscular Volume 95.7 fl (80-100); Platelet Count Result 247 k/mm3 (150-375); Red Cell Distribution Width 12.4 % (11.5-14.5)
[2023-07-07 05:29] LABS: Anion Gap 6 mmol/L (4-12); Blood Urea Nitrogen 24 mg/dL (7-17); Calcium 9.8 mg/dL (8.4-10.2); Carbon Dioxide 33 mmol/L (22-30); Chloride 101 mmol/L (98-107); Estimated CRCL calculation 58 ml/min; Estimated Glomerular Filt Rate 54; Glucose 121 mg/dL (65-110); Potassium 3.7 mmol/L (3.4-5.0); Sodium 140 mmol/L (137-145)
[2023-07-07] MEDS: ASCORBIC ACID 500 MG TABLET 1000 MG PO (09:12)
[2023-07-07] MEDS: METOPROLOL SUCCINATE EXT REL 25 MG TABCR PO (09:12)
[2023-07-07] MEDS: SPIRONOLACTONE 25 MG TABLET PO (09:13)
[2023-07-07] MEDS: CYANOCOBALAMIN 1,000 MCG TABLET 1000 MCG PO (09:13)
[2023-07-07] MEDS: TORSEMIDE 20 MG TABLET PO (09:13)
[2023-07-07] MEDS: predniSONE 20 MG TABLET 40 MG PO (09:13)
[2023-07-07] MEDS: OMEGA 3 POLYUNSAT FATTY ACIDS 1 GM CAP 2 GM PO (09:13)
[2023-07-07] MEDS: DOCUSATE SODIUM 100 MG CAPSULE PO (09:13)
[2023-07-07] MEDS: MAGNESIUM OXIDE 400 MG TABLET PO (09:13)
[2023-07-07] MEDS: CHOLECALCIFEROL 1,000 UNITS TABLET 4000 UNITS PO (09:13)
--- NOTE | 2023-07-07 11:31 | PM.DS ---
DS: Admitting Diagnosis Discharge Date 07/07/23 Admitting Diagnosis Acute asthma exacerbation, community-acquired pneumonia DS: Discharge Diagnosis Discharge Diagnosis (1) CAP (community acquired pneumonia): Code(s): J18.9 - Pneumonia, unspecified organism Status: Acute (2) Acute asthma exacerbation: Code(s): J45.901 - Unspecified asthma with (acute) exacerbation Status: Acute Plan #community acquired PNA - food with Rocephin azithromycin, not tolerating azithromycin. Will go home with 2 more days of cefuroxime -quad screen negative #Chronic conditions -asthma/copd: continue bronchodilators and steroids, prednisone 40mg daily -CHF: torsemide, spironolactone, BB, No acei or arb? -HTN: metoprolol -may continue home supplements: ferrous sulfate, mag ox, B12, vit d -HLD: on aspirin. does not tolerate statin, on fish oil -h/o AVR Diet:?Regular DVTppx:?Xarelto Code status:?Full code Disposition:?home today DS: Summary Hospital Course Reason for hospitalization: SOB Hospital Course: Patient is 73-year-old female past with history of asthma, Essential hypertension, chronic heart failure of unknown type, hyperlipidemia, history of aortic stenosis status post TAVR presents with complaints of dyspnea. Patient was hospitalized from 07/03/2023-07/07/2023. She was treated for community-acquired pneumonia with azithromycin and Rocephin, she did not tolerate the Azithromycin which was discontinued. her quad screen was negative. On presentation there was concern for an asthma exacerbation and she was treated with a few days of steroids. Hemoglobin A1c 6.1. At time of discharge patient's labs are stable, vitals stable, patient is stable for discharge home. Patient follow-up PCP in 1 week. Patient understands and agrees with plan. Status at Discharge Cognitive/behavioral status at discharge: stable, improved Time Spent with Patient Time attestation: Total time spent providing and/or coordinating discharge services: 35 min Exam Narrative: - GENERAL:? Pleasant woman in no acute distress. - EYES: EOMI. Anicteric. - HENT: Moist mucous membranes. - LUNGS: Clear to auscultation bilaterally, no wheezing, rhonchi, or rales. - CARDIOVASCULAR: Regular rate and rhythm. No murmur. No JVD. - ABDOMEN: Soft, non-tender and non-distended. No palpable masses. - EXTREMITIES: No edema. Peripheral pulses 2+. Non-tender. - NEUROLOGIC: No focal neurological deficits. CN II-XII grossly intact. - PSYCHIATRIC: Awake, Alert and oriented x 3. Appropriate mood and affect. - SKIN: No rashes or lesions. Warm. - LYMPH: No cervical lymphadenopathy. DS: Data Data Completed and Pending Labs on day of discharge: Labs from last 24 hours 07/07/23 04:43 WBC 11.0 H RBC 4.20 Hgb 13.1 Hct 40.2 MCV 95.7 MCH 31.2 MCHC 32.6 RDW 12.4 Plt Count 247 MPV 10.0 Sodium 140 Potassium 3.7 Chloride 101 Carbon Dioxide 33 H Anion Gap 6 BUN 24 H Creatinine 1.00 Estim Creat Clear Calc 58 Estimated GFR 54 L Glucose 121 H Calcium 9.8 Imaging Radiologist's impression: CXR 07/03/23 IMPRESSION: Diffuse pulmonary opacities may represent respiratory bronchiolitis or mild interstitial edema. Discharge Plan Discharge Attending physician on discharge: Murphy Daly Discharging Clinician: Murphy Daly Anticipated Discharge Date/Time: 07/07/23 11:26 Patient Disposition: Home, Self-Care Activity: may shower Diet: regular Discharge Instructions: Please complete 2 more days of antibiotics cefuroxime to complete 5 day antibiotic course. Patient Instructions: Antibiotic Form, Rivaroxaban (By mouth), Heart Failure (DC), Safe Use of Anticoagulants (DC) Patient Language: [place] Stand Alone Forms: General Discharge Information Follow-up/Referrals: Jewell,Tc Moscoso MD [Primary Care Provider] - 1 Week Discharge Medications: New cefuroxime axetil 500 mg tablet
--- NOTE | 2023-07-07 14:22 | PCCCNOTE ---
On 07/07/23, the student, Michelle Gibson, provided care and completed [facility] documentation on this patient. I have reviewed the student's documentation and agree with the findings.
== END 2023-07-07 13:20 | disposition home or self-care (01) ==
LOC: ANHED 21:44 → ANH2MED 22:48
PROVIDERS: Internal Medicine; Admitting Provider Internal Medicine; Emergency Provider Emergency Medicine; PCP Family Medicine; Visit Provider Student in an Organized Health Care Education/Training Program
DX: J18.9 Pneumonia, unspecified organism (principal); J44.0 Chronic obstructive pulmonary disease with (acute) lower respiratory infection; J44.1 Chronic obstructive pulmonary disease with (acute) exacerbation; I48.91 Unspecified atrial fibrillation; I13.0 Hypertensive heart and chronic kidney disease with heart failure and stage 1 through stage 4 chronic kidney disease, or unspecified chronic kidney disease; I50.9 Heart failure, unspecified; N18.9 Chronic kidney disease, unspecified; Z95.2 Presence of prosthetic heart valve; E78.5 Hyperlipidemia, unspecified; R91.8 Other nonspecific abnormal finding of lung field; R94.31 Abnormal electrocardiogram [ECG] [EKG]; R73.02 Impaired glucose tolerance (oral); R63.0 Anorexia; Z68.37 Body mass index [BMI] 37.0-37.9, adult; Z20.822 Contact with and (suspected) exposure to COVID-19; Z87.891 Personal history of nicotine dependence; Z79.01 Long term (current) use of anticoagulants; Z79.82 Long term (current) use of aspirin; Z79.899 Other long term (current) drug therapy
CPT/HCPCS: 36415; 71045; 80048; 80053; 80061; 83036; 83880; 84145; 85025; 85027; 87637; 93005; 94640; 96365; 96366; 96375; 96376; 99285; A9270; G0378; J0456; J0696; J2919; J7512